=== PATIENT | male | born 1985 | race Caucasian/White ===

== ENCOUNTER 2016-07-05 18:51 | Inpatient (IN) | payer MEDICAID ==
[2016-07-05] MEDS ORDERED: NS 1,000 ML IV ONE (18:55)
--- NOTE | 2016-07-05 19:03 | CPEKG ---
Heart Rate: 114 RR Interval: 526 P-R Interval: 172 QRSD Interval: 84 QT Interval: 296 QTC Interval: 408 P [place]: 60 QRS [place]: 95 T Wave [place]: 37 EKG Severity - BORDERLINE ECG - EKG Impression: SINUS TACHYCARDIA EKG Impression: ATRIAL PREMATURE COMPLEX EKG Impression: PROBABLE LEFT ATRIAL ABNORMALITY EKG Impression: BORDERLINE RIGHT AXIS DEVIATION Electronically Signed By: Jj Johnson 06-Jul-2016 10:36:34
[2016-07-05 19:13] LABS: % IMMATURE GRANULYOCYTES 0.2 % (0.0-1.1); ABSOLUTE IMMATURE GRANULOCYTES 0.02 10^3/uL (0.00-0.10); ADD DIFF? NO; ADD MORPH? NO; ADD SCAN? NO; ATYPICAL LYMPHOCYTE FLAG 50 (0-99); FRAGMENT RBC FLAG 0 (0-99); HEMATOCRIT 54.4 % (40.0-51.0); HEMOGLOBIN 17.9 g/dL (13.7-17.5); LEFT SHIFT FLG 0 (0-99); LIPEMIA HEMOLYSIS FLAG 80 (0-99); MEAN CELL HEMOGLOBIN 34.8 pg (27.9-34.1); MEAN CELL HEMOGLOBIN CONCENTR. 32.9 g/dL (32.4-36.7); MEAN CELL VOLUME 105.8 fL (81.5-99.8); MEAN PLATELET VOLUME 9.6 fL (8.7-11.7); PLATELET CLUMPS FLAG 10 (0-99); PLATELET COUNT 342 10^3/uL (150-400); RED BLOOD CELL COUNT 5.14 10^6/uL (4.40-6.38); RED CELL DISTRIBUTION WIDTH 11.4 % (11.5-15.2)
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
[2016-07-05 19:31] LABS: ANION GAP 37 mEq/L (8-16); CALCIUM 10.1 mg/dL (8.5-10.4); CARBON DIOXIDE 10 mEq/l (22-31); CHLORIDE 95 mEq/L (97-110); CREATININE 1.2 mg/dL (0.7-1.3); GLOMERULAR FILTRATION RATE > 60; GLUCOSE 103 mg/dL (70-100); POTASSIUM 4.1 mEq/L (3.5-5.2); SODIUM 142 mEq/L (134-144)
[2016-07-05] MEDS ORDERED: ONDANSETRON 4 MG/2 ML VIAL IVP ONE (19:47)
[2016-07-05] MEDS ORDERED: ACETAMINOPHEN 325 MG TAB PO PRN (20:38)
[2016-07-05] MEDS ORDERED: ONDANSETRON 4 MG/2 ML VIAL IVP PRN (20:38)
[2016-07-05] MEDS ORDERED: LORazepam 2 MG/ML INJ IVP PRN (20:39)
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
[2016-07-05] MEDS ORDERED: GADOBUTROL 10 ML VIAL IVP ONE (21:37)
[2016-07-05] MEDS: HYDROmorphONE/DILAUDID 1 MG/ML SYR IVP PRN (22:28)
[2016-07-05] MEDS: METOPROLOL TARTRATE 25 MG TAB PO SCH (22:29)
[2016-07-05] MEDS: NS 1,000 ML IV SCH (22:33)
[2016-07-05] MEDS: levETIRAcetam 500 MG in NS 100 ML IV SCH (22:40)
[2016-07-05] MEDS: oxyCODONE IR 5 MG TAB PO PRN (22:57)
[2016-07-06] MEDS: oxyCODONE IR 5 MG TAB PO PRN ×3 (03:00→13:31)
[2016-07-06 05:05] LABS: % IMMATURE GRANULYOCYTES 0.2 % (0.0-1.1); ABSOLUTE IMMATURE GRANULOCYTES 0.01 10^3/uL (0.00-0.10); ADD DIFF? NO; ADD MORPH? NO; ADD SCAN? NO; ATYPICAL LYMPHOCYTE FLAG 30 (0-99); FRAGMENT RBC FLAG 0 (0-99); HEMATOCRIT 42.9 % (40.0-51.0); HEMOGLOBIN 15.1 g/dL (13.7-17.5); LEFT SHIFT FLG 0 (0-99); LIPEMIA HEMOLYSIS FLAG 90 (0-99); MEAN CELL HEMOGLOBIN 34.7 pg (27.9-34.1); MEAN CELL HEMOGLOBIN CONCENTR. 35.2 g/dL (32.4-36.7); MEAN CELL VOLUME 98.6 fL (81.5-99.8); MEAN PLATELET VOLUME 9.4 fL (8.7-11.7); PLATELET CLUMPS FLAG 0 (0-99); PLATELET COUNT 222 10^3/uL (150-400); RED BLOOD CELL COUNT 4.35 10^6/uL (4.40-6.38); RED CELL DISTRIBUTION WIDTH 11.3 % (11.5-15.2)
[2016-07-06 05:23] LABS: ANION GAP 10 mEq/L (8-16); CALCIUM 8.9 mg/dL (8.5-10.4); CARBON DIOXIDE 24 mEq/l (22-31); CHLORIDE 102 mEq/L (97-110); GLOMERULAR FILTRATION RATE > 60; GLUCOSE 77 mg/dL (70-100); POTASSIUM 3.8 mEq/L (3.5-5.2); SODIUM 136 mEq/L (134-144)
[2016-07-06] MEDS: HYDROmorphONE/DILAUDID 1 MG/ML SYR IVP PRN (06:24)
[2016-07-06] MEDS: NS 1,000 ML IV SCH (06:27)
[2016-07-06 08:02] VITALS: PULSE 82
[2016-07-06] MEDS: METOPROLOL TARTRATE 25 MG TAB PO SCH (08:23)
[2016-07-06] MEDS: levETIRAcetam 500 MG in NS 100 ML IV SCH (08:23)
[2016-07-06 12:08] VITALS: BP 147/88; RESP 18; TEMP 98.1; O2SAT 92
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
--- NOTE | 2016-07-06 16:24 | GDS ---
[f rep st] DISCHARGE SUMMARY DISCHARGE DIAGNOSES: 1. Suspected temporal seizure disorder. 2. Oral trauma. 3. Resolved supraventricular tachycardia, likely due to seizure. CONSULTANTS: Dr. Raghav Hernandez, Neurology. Dr. James, Oral Surgery HOSPITAL COURSE AND STAY BY PROBLEM: 1. Seizure: The patient presented to the hospital after having a seizure. He was monitored and st arted on IV Keppra. He has been seizure-free since admission. The patient did sustain some dental trauma. He was also seen by Dr. James, from Oral Surgery, who performed a dental splint. An MRI of th e brain was done that was negative and did not show any reason for his seizures. 2. Initially the patient was in supraventricular tachycardia which resolved. He is currently in si nus rhythm. PHYSICAL EXAM: VITAL SIGNS: On day of discharge, blood pressure 147/88, pulse of 82, respiratory r ate 18, O2 saturation 92% on room air. Temperature afebrile. GENERAL: No acute distress. NEURO: Cranial nerves 2-12 grossly intact. No focal motor or sensory deficits. SKIN: Clear. No rashes. HEART: S1, S2. No murmurs, rubs, clicks, gallops. DIAGNOSTIC STUDIES: During this hospital stay, brain MRI done 07/05/2016, refer to report. CT of t he face: Revealed a loosening of the lateral and central incisor off the mandibular arch bilaterall y with ventral angulation and small associated fracture adjacent to the roots anteriorly. DISCHARGE MEDICATIONS: Please refer to discharge medication reconciliation in [facility] for full det ails. Below is a preliminary list. New medications on hospital discharge, Keppra 500 mg p.o. twice daily. DISCHARGE INSTRUCTIONS: The patient will be discharged from the hospital where he should follow up with Dr. James, as well as Dr. Hernandez from Neurology. 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 Copy requested to: Dr. James /[id number]/MODL
== END 2016-07-06 16:08 | disposition home or self-care (01) | DRG 101 ==
LOC: EDUNIT# → OBSVTOIN 20:37 → F3N 22:16
PROVIDERS: ADMIT Internal Medicine; ATTEND Family Medicine
PROC: 0NSV35Z Reposition Left Mandible with External Fixation Device, Percutaneous Approach (ICD-10-PCS; principal; 2016-07-06)
DX: R56.9 Unspecified convulsions (principal); I47.1 Supraventricular tachycardia; S02.609A Fracture of mandible, unspecified, initial encounter for closed fracture; S03.2XXA Dislocation of tooth, initial encounter; X58.XXXA Exposure to other specified factors, initial encounter
CPT/HCPCS: 80305; 82947-QW; 96374; A9585; J1170; J1953; J2405

== ENCOUNTER → 2016-08-19 | Outpatient (CLI) | payer MEDICAID ==
--- NOTE | 2016-08-19 17:44 | CPEEG ---
[f rep st] ELECTROENCEPHALOGRAM DATE OF STUDY: 08/19/2016 INTERPRETATION: This 4-hour video EEG recording is normal. There were no potentially epileptogenic abnormalities present in the awake or sleep recordings. During the video EEG monitoring session, t he patient did not have any clinical events. REPORT: This 4-hour video EEG contains 10 Hz alpha to the posterior head regions. The background a ctivity was normal and symmetric. There was no abnormal activation at rest, during photic stimulati on or hyperventilation. The patient became drowsy and fell into sustained sleep during the study. There was no abnormal activation during drowsiness, sleep during times of arousal. The patient did not have any clinical events during the video EEG monitoring session. /[id number]/MODL
== END ==
LOC: FCPNEURO 08:50
PROVIDERS: ATTEND Psychiatry & Neurology Neurology
DX: G40.209 Localization-related (focal) (partial) symptomatic epilepsy and epileptic syndromes with complex partial seizures, not intractable, without status epilepticus (principal)